=== PATIENT | female | born 1975 | race Two or more races ===

== ENCOUNTER 2020-11-30 11:47 | Inpatient (IN) | payer MEDICAID, OTHER ==
[~2020-11-30] VITALS: Ht 165.1 cm; Wt 65.9 kg
[2020-11-30 15:29] LABS: Basophils # (auto) 0.1 10 ^3/uL (0-0.2); Eosinophils # (auto) 0.1 10 ^3/uL (0-0.8); Eosinophils % (auto) 0.6 % (0.0-7.0); Hemoglobin 8.6 g/dL (12.2-16.2); Lymphocytes # (auto) 0.9 10 ^3/uL (0.4-5.4); Mean Corpuscular Hgb Conc. 31.8 g/dL (32.0-36.0); Monocytes # (auto) 1.1 10 ^3/uL (0-1.3); Red Blood Cells 3.85 10^6/uL (4.0-5.20)
[2020-11-30 15:31] LABS: Basophils % (auto) 0.7 % (0.0-2.0); Hematocrit 26.9 % (36.0-46.0); Lymphocytes % (auto) 8.1 % (10.0-50.0); Mean Corpuscular Hemoglobin 22.3 pg (28.0-32.0); Monocytes % (auto) 10.1 % (0.0-12.0); Neutrophils # (auto) 8.8 10 ^3/uL (1.6-8.6); Neutrophils % (auto) 80.5 % (37.0-80.0); Red Cell Distribution Width 19.3 % (11.8-14.3)
[2020-11-30 15:40] LABS: Albumin 3.4 g/dL (3.4-5.0); Calcium 9.2 mg/dL (8.5-10.1); Magnesium 2.3 mg/dL (1.6-2.6)
[2020-11-30 15:44] LABS: BUN/Creatinine Ratio 15.8; Bilirubin, Total 0.8 mg/dL (0.2-1.0)
[2020-11-30 15:59] LABS: Urine Bacteria NONE SEEN /hpf (None Seen); Urine Blood Negative /uL (Negative); Urine Mucus MODERATE (None Seen); Urine Specific Gravity 1.022 (1.001-1.035); Urine WBC 6 /hpf (0 - 5)
[2020-11-30 16:04] LABS: INR 0.98 (0.9-1.15); Partial Thromboplastin Time 24.5 sec (23.0-31.2)
[2020-11-30] MEDS ORDERED: IOHEXOL 350 MG/ML 100ML IJ ONE (16:44)
[2020-11-30] MEDS ORDERED: ENOXAPARIN SOD 60 MG/0.6 ML SYRINGE SC ONE (16:45)
[2020-11-30] MEDS ORDERED: MORPHINE SULFATE INJECTION 2 MG/ML SYRG IV PRN (19:00)
[2020-11-30] MEDS ORDERED: NITROGLYCERIN 0.4 MG SL TAB SL PRN (19:00)
[2020-11-30] MEDS ORDERED: ONDANSETRON HCL 4 MG/2 ML VIAL IV PRN (19:00)
[2020-11-30] MEDS: SODIUM CHLORIDE 0.9% 1,000 ML IV SCH (19:30)
[2020-11-30 20:20] VITALS: BP 134/79
[2020-11-30 22:00] VITALS: BP 134/79
[2020-11-30] MEDS: MORPHINE SULFATE INJECTION 2 MG/ML SYRG IV PRN (23:06)
[2020-11-30] MEDS ORDERED: IBUP600T28 PO (23:51)
[2020-12-01] MEDS: SODIUM CHLORIDE 0.9% 1,000 ML IV SCH ×2 (04:53→17:46)
[2020-12-01 05:00] VITALS: BP 110/71
[2020-12-01] MEDS ORDERED: ENOXAPARIN SOD 60 MG/0.6 ML SYRINGE SC ONE (05:00)
[2020-12-01 09:00] VITALS: BP 122/69
[2020-12-01] MEDS ORDERED: IOHEXOL 350 MG/ML 100ML IJ ONE (13:56)
[2020-12-01] MEDS ORDERED: LIDOCAINE 2%HCL (LOCAL ANESTH.) INJ 20ML MDV ONE (13:56)
[2020-12-01] MEDS ORDERED: MIDAZOLAM HCL 2MG/2ML 2ml VIAL (1mg/ml) ONE (13:57)
[2020-12-01] MEDS ORDERED: ANGIOMAX 250 MG VIAL IV ONE (13:57)
[2020-12-01] MEDS ORDERED: fentaNYL CITRATE 100 MCG/2 ML VL ONE (13:57)
[2020-12-01] MEDS ORDERED: diphenhdrAMINE HCL 50 MG/1 ML VL ONE (14:01)
[2020-12-01] MEDS ORDERED: methylPREDNISolone SOD SUCC 125 MG/2 ML VL ONE (14:01)
[2020-12-01] MEDS ORDERED: FAMOTIDINE (10MG/ML) 2ML VL IV ONE (14:02)
[2020-12-01] MEDS ORDERED: BUPIVACAINE HCL 50 ML ONE (14:11)
[2020-12-01] MEDS ORDERED: BUPIVACAINE 0.25% INJ 50ML VIAL ONE (14:11)
[2020-12-01] MEDS ORDERED: HYDROmorphone HCL 2 MG/ML VL ONE ×2 (14:49→15:16)
[2020-12-01 17:50] VITALS: BP 130/83
[2020-12-01 20:00] VITALS: BP 113/54
[2020-12-01] MEDS: RIVAROXABAN 15 MG TAB PO SCH (22:05)
[2020-12-02] VITALS (14 sets, daily range): BP systolic 98–139; BP diastolic 55–80
[2020-12-02] MEDS: SODIUM CHLORIDE 0.9% 1,000 ML IV SCH ×3 (01:05→21:00)
[2020-12-02] MEDS: MORPHINE SULFATE INJECTION 2 MG/ML SYRG IV PRN ×3 (01:05→18:31)
[2020-12-02 06:51] LABS: Basophils # (auto) 0.1 10 ^3/uL (0-0.2); Basophils % (auto) 0.9 % (0.0-2.0); Eosinophils # (auto) 0.3 10 ^3/uL (0-0.8); Lymphocytes # (auto) 1.2 10 ^3/uL (0.4-5.4); Mean Corpuscular Hemoglobin 22.7 pg (28.0-32.0); Monocytes # (auto) 0.9 10 ^3/uL (0-1.3); Neutrophils # (auto) 5.1 10 ^3/uL (1.6-8.6); White Blood Cell 7.6 10^3/uL (4.4-10.8)
[2020-12-02 06:53] LABS: Eosinophils % (auto) 4.2 % (0.0-7.0); Hematocrit 20.8 % (36.0-46.0); Lymphocytes % (auto) 16.2 % (10.0-50.0); Mean Corpuscular Hgb Conc. 31.6 g/dL (32.0-36.0); Monocytes % (auto) 11.5 % (0.0-12.0); Neutrophils % (auto) 67.2 % (37.0-80.0); Red Blood Cells 2.89 10^6/uL (4.0-5.20); Red Cell Distribution Width 19.5 % (11.8-14.3)
[2020-12-02 07:14] LABS: Hemoglobin 6.6 g/dL (12.2-16.2)
[2020-12-02] MEDS: RIVAROXABAN 15 MG TAB PO SCH ×2 (10:39→21:57)
[2020-12-02] MEDS: PANTOPRAZOLE 40 MG/10 ML VIAL INJ IV SCH (10:40)
[2020-12-03] VITALS (8 sets, daily range): BP systolic 100–130; BP diastolic 58–78
[2020-12-03] MEDS: MORPHINE SULFATE INJECTION 2 MG/ML SYRG IV PRN ×4 (00:41→19:48)
[2020-12-03 06:42] LABS: Basophils # (auto) 0.1 10 ^3/uL (0-0.2); Hemoglobin 8.9 g/dL (12.2-16.2); Neutrophils # (auto) 4.3 10 ^3/uL (1.6-8.6); White Blood Cell 6.8 10^3/uL (4.4-10.8)
[2020-12-03 06:43] LABS: Basophils % (auto) 1.1 % (0.0-2.0); Eosinophils # (auto) 0.3 10 ^3/uL (0-0.8); Eosinophils % (auto) 3.9 % (0.0-7.0); Hematocrit 26.5 % (36.0-46.0); Mean Corpuscular Hemoglobin 26.1 pg (28.0-32.0); Mean Corpuscular Hgb Conc. 33.6 g/dL (32.0-36.0); Mean Corpuscular Volume 77.8 fL (80.0-100.0); Monocytes # (auto) 1.1 10 ^3/uL (0-1.3); Monocytes % (auto) 16.5 % (0.0-12.0); Neutrophils % (auto) 63.5 % (37.0-80.0); Red Blood Cells 3.41 10^6/uL (4.0-5.20)
[2020-12-03 06:50] LABS: Red Cell Distribution Width 23.3 % (11.8-14.3)
[2020-12-03 07:05] LABS: Potassium 3.6 mmol/L (3.5-5.1)
[2020-12-03 07:13] LABS: Albumin 2.3 g/dL (3.4-5.0); BUN/Creatinine Ratio 8.3; Bilirubin, Total 0.6 mg/dL (0.2-1.0); Total Protein 6.1 g/dL (6.4-8.2)
[2020-12-03] MEDS: PANTOPRAZOLE 40 MG/10 ML VIAL INJ IV SCH (10:11)
[2020-12-03] MEDS: RIVAROXABAN 15 MG TAB PO SCH ×2 (10:12→21:55)
[2020-12-03] MEDS: NICOTINE 21MG/24 HR TOPICAL PATCH TD SCH (10:12)
[2020-12-03] MEDS: SODIUM CHLORIDE 0.9% 1,000 ML IV SCH ×3 (12:30→21:56)
[2020-12-04 05:19] VITALS: BP 128/86
[2020-12-04 05:42] LABS: Hematocrit 28.8 % (36.0-46.0); Hemoglobin 9.3 g/dL (12.2-16.2); Lymphocytes # (auto) 0.9 10 ^3/uL (0.4-5.4); Monocytes # (auto) 1.3 10 ^3/uL (0-1.3); Nucleated Red Blood Cells % 0.1 %
[2020-12-04 05:46] LABS: Basophils # (auto) 0 10 ^3/uL (0-0.2); Basophils % (auto) 0.7 % (0.0-2.0); Eosinophils # (auto) 0.2 10 ^3/uL (0-0.8); Eosinophils % (auto) 3.3 % (0.0-7.0); Lymphocytes % (auto) 12.5 % (10.0-50.0); Mean Corpuscular Hemoglobin 24.2 pg (28.0-32.0); Mean Corpuscular Hgb Conc. 32.4 g/dL (32.0-36.0); Mean Corpuscular Volume 74.8 fL (80.0-100.0); Monocytes % (auto) 17.3 % (0.0-12.0); Neutrophils # (auto) 4.8 10 ^3/uL (1.6-8.6); Neutrophils % (auto) 66.2 % (37.0-80.0); Red Blood Cells 3.86 10^6/uL (4.0-5.20); White Blood Cell 7.3 10^3/uL (4.4-10.8)
[2020-12-04 05:48] LABS: Red Cell Distribution Width 24.7 % (11.8-14.3)
[2020-12-04 06:00] LABS: Potassium 3.5 mmol/L (3.5-5.1)
[2020-12-04 06:08] LABS: Albumin 2.4 g/dL (3.4-5.0); BUN/Creatinine Ratio 7.4; Bilirubin, Total 0.6 mg/dL (0.2-1.0); Calcium 8.3 mg/dL (8.5-10.1); Total Protein 6.7 g/dL (6.4-8.2)
[2020-12-04 08:31] VITALS: BP 124/72
[2020-12-04] MEDS: NICOTINE 21MG/24 HR TOPICAL PATCH TD SCH (10:17)
[2020-12-04] MEDS: RIVAROXABAN 15 MG TAB PO SCH (10:17)
[2020-12-04] MEDS: PANTOPRAZOLE 40 MG/10 ML VIAL INJ IV SCH (10:17)
[2020-12-04 12:57] VITALS: BP 114/74
== END 2020-12-04 14:00 | disposition home or self-care (01) | DRG 182 ==
LOC: ER 11:47 → TELE 18:54 → TELE-CENTR 20:20
PROVIDERS: ADMIT Nurse Practitioner Acute Care; ATTEND Family Medicine
PROC: 067N3ZZ Dilation of Left Femoral Vein, Percutaneous Approach (ICD-10-PCS; 2020-12-01)
PROC: 06CN3ZZ Extirpation of Matter from Left Femoral Vein, Percutaneous Approach (ICD-10-PCS; 2020-12-01)
PROC: B51C1ZZ Fluoroscopy of Left Lower Extremity Veins using Low Osmolar Contrast (ICD-10-PCS; 2020-12-01)
PROC: 30233N1 Transfusion of Nonautologous Red Blood Cells into Peripheral Vein, Percutaneous Approach (ICD-10-PCS; principal; 2020-12-02)
DX: I82.412 Acute embolism and thrombosis of left femoral vein (principal); I82.432 Acute embolism and thrombosis of left popliteal vein; D68.9 Coagulation defect, unspecified; J44.9 Chronic obstructive pulmonary disease, unspecified; D64.9 Anemia, unspecified; M06.9 Rheumatoid arthritis, unspecified; Z20.822 Contact with and (suspected) exposure to COVID-19; I82.442 Acute embolism and thrombosis of left tibial vein; F17.210 Nicotine dependence, cigarettes, uncomplicated; Z79.01 Long term (current) use of anticoagulants; Z82.49 Family history of ischemic heart disease and other diseases of the circulatory system; Z88.8 Allergy status to other drugs, medicaments and biological substances; Z71.6 Tobacco abuse counseling
CPT/HCPCS: 36415; 37187; 37225; 71045; 71275; 75820; 80053; 81001; 81025; 82270; 83735; 85025; 85379; 85610; 85730; 86850; 86900; 86901; 86920; 87081; 87426; 93005; 93971; 96361; 96372; 96374; 99152; 99153; C1769; C1894; C9113; G0378; J2250; J2405; J3490

== ENCOUNTER 2020-12-13 12:16 | Emergency (ER) | payer MEDICAID ==
[~2020-12-13] VITALS: Ht 165.1 cm; Wt 60.3 kg
[~2020-12-13 12:16] MED LIST: IBUP600T28 PO
[2020-12-13 15:29] VITALS: BP 113/81
== END 2020-12-13 16:50 | disposition home or self-care (01) ==
LOC: ER 12:16
DX: T81.49XA Infection following a procedure, other surgical site, initial encounter (principal); F17.210 Nicotine dependence, cigarettes, uncomplicated; Z79.1 Long term (current) use of non-steroidal anti-inflammatories (NSAID); Z88.8 Allergy status to other drugs, medicaments and biological substances

== ENCOUNTER 2021-08-01 16:55 | Inpatient (IN) | payer MEDICAID ==
[~2021-08-01] VITALS: Ht 165.1 cm; Wt 63.0 kg
[2021-08-01] MEDS ORDERED: ENOXAPARIN SOD 100 MG/1 ML SYRINGE SC ONE (18:00)
[2021-08-01] MEDS ORDERED: IOHEXOL 350 MG/ML 100ML IJ ONE (20:34)
[2021-08-01 21:04] LABS: Basophils # (auto) 0 10 ^3/uL (0-0.2); Basophils % (auto) 0.6 % (0.0-2.0); Eosinophils # (auto) 0.3 10 ^3/uL (0-0.8); Eosinophils % (auto) 4.3 % (0.0-7.0); Hematocrit 31.1 % (36.0-46.0); Hemoglobin 10.5 g/dL (12.2-16.2); Lymphocytes # (auto) 2.1 10 ^3/uL (0.4-5.4); Lymphocytes % (auto) 35.2 % (10.0-50.0); Mean Corpuscular Hemoglobin 32.4 pg (28.0-32.0); Mean Corpuscular Hgb Conc. 33.8 g/dL (32.0-36.0); Monocytes # (auto) 0.6 10 ^3/uL (0-1.3); Monocytes % (auto) 9.7 % (0.0-12.0); Neutrophils # (auto) 2.9 10 ^3/uL (1.6-8.6); Neutrophils % (auto) 50.2 % (37.0-80.0); Nucleated Red Blood Cells % 0.1 %; Red Blood Cells 3.24 10^6/uL (4.0-5.20); Red Cell Distribution Width 15.6 % (11.8-14.3); White Blood Cell 5.9 10^3/uL (4.4-10.8)
[2021-08-01 21:19] LABS: Albumin 3.5 g/dL (3.4-5.0); Calcium 8.6 mg/dL (8.5-10.1)
[2021-08-01 21:23] LABS: Bilirubin, Total 0.2 mg/dL (0.2-1.0); Total Protein 7.5 g/dL (6.4-8.2)
[2021-08-01 22:28] LABS: INR 1.21 (0.9-1.15); Partial Thromboplastin Time 30.8 sec (23.6-33.0)
[2021-08-01] MEDS: HEPARIN DRIP/D5W 100UNITS/ML 250 ML IV SCH (23:12)
[2021-08-01 23:49] LABS: Urine Bacteria NONE SEEN /hpf (None Seen); Urine Blood Negative /uL (Negative); Urine Specific Gravity 1.044 (1.001-1.035); Urine WBC <1 /hpf (0 - 5)
[2021-08-02] MEDS ORDERED: NITROGLYCERIN 0.4 MG SL TAB SL PRN (06:30)
[2021-08-02] MEDS ORDERED: SODIUM CHLORIDE 0.9% 1,000 ML IV ONE (06:30)
[2021-08-02] MEDS ORDERED: MORPHINE SULFATE INJECTION 2 MG/ML SYRG IV PRN ×2 (06:30→06:45)
[2021-08-02] MEDS ORDERED: ONDANSETRON HCL 4 MG/2 ML VIAL IV PRN (06:30)
[2021-08-02] MEDS ORDERED: MORPHINE SULFATE 4 MG/ML SYR/VIAL IV PRN (06:30)
[2021-08-02 06:36] LABS: INR 1.16 (0.9-1.15); Partial Thromboplastin Time 46.1 sec (23.6-33.0)
[2021-08-02] MEDS: HEPARIN DRIP/D5W 100UNITS/ML 250 ML IV SCH (06:55)
[2021-08-02] MEDS ORDERED: D5W/LACTATED RINGERS 1,000 ML IV SCH (08:30)
[2021-08-02 14:40] LABS: Potassium 4.4 mmol/L (3.5-5.1)
[2021-08-02 14:50] LABS: BUN/Creatinine Ratio 8.1; Calcium 8.5 mg/dL (8.5-10.1)
[2021-08-02] MEDS ORDERED: HYDROcodone-ACET 5/325MG TAB PO PRN (17:30)
[2021-08-02 18:23] LABS: INR 1.18 (0.9-1.15)
[2021-08-02 18:30] LABS: Partial Thromboplastin Time 121.3 sec (23.6-33.0)
[2021-08-02] MEDS ORDERED: RIV20T PO (20:04)
[2021-08-02] MEDS ORDERED: FERR325T20 PO (20:04)
[2021-08-02] MEDS: APIXABAN 5 MG TAB PO SCH (20:57)
[2021-08-02] MEDS: ACETAMINOPHEN 325 MG TAB PO PRN (21:09)
[2021-08-02 22:00] VITALS: BP 108/56
[2021-08-03 05:00] VITALS: BP_SYST 106; BP_SYST 137; BP_DIAS 60; BP_DIAS 92
[2021-08-03 08:00] VITALS: BP 123/58
[2021-08-03 08:38] VITALS: BP 123/58
[2021-08-03] MEDS: APIXABAN 5 MG TAB PO SCH (09:12)
[2021-08-03 12:00] LABS: Basophils # (auto) 0.1 10 ^3/uL (0-0.2); Basophils % (auto) 1.3 % (0.0-2.0); Eosinophils # (auto) 0.1 10 ^3/uL (0-0.8); Eosinophils % (auto) 2.9 % (0.0-7.0); Hematocrit 29.7 % (36.0-46.0); Hemoglobin 9.9 g/dL (12.2-16.2); Lymphocytes % (auto) 20.6 % (10.0-50.0); Mean Corpuscular Hemoglobin 31.4 pg (28.0-32.0); Mean Corpuscular Hgb Conc. 33.3 g/dL (32.0-36.0); Mean Corpuscular Volume 94.3 fL (80.0-100.0); Monocytes # (auto) 0.6 10 ^3/uL (0-1.3); Monocytes % (auto) 12.2 % (0.0-12.0); Nucleated Red Blood Cells % 0.2 %; Red Blood Cells 3.14 10^6/uL (4.0-5.20); Red Cell Distribution Width 16.2 % (11.8-14.3); White Blood Cell 4.8 10^3/uL (4.4-10.8)
[2021-08-03 13:00] VITALS: BP 105/53
[2021-08-03] MEDS: ACETAMINOPHEN 325 MG TAB PO PRN (13:36)
[2021-08-03] MEDS ORDERED: APIX5TAB PO (15:42)
[2021-08-03 17:10] VITALS: BP 101/64
== END 2021-08-03 18:20 | disposition home or self-care (01) | DRG 197 ==
LOC: ER 16:55 → TELE 08-02 06:22 → TELE-CENTR 08-02 18:25
PROVIDERS: ADMIT Hospitalist; ATTEND Hospitalist
DX: I82.412 Acute embolism and thrombosis of left femoral vein (principal); D63.8 Anemia in other chronic diseases classified elsewhere; I82.502 Chronic embolism and thrombosis of unspecified deep veins of left lower extremity; Z20.822 Contact with and (suspected) exposure to COVID-19; F17.210 Nicotine dependence, cigarettes, uncomplicated; M19.90 Unspecified osteoarthritis, unspecified site; Z82.49 Family history of ischemic heart disease and other diseases of the circulatory system; Z88.8 Allergy status to other drugs, medicaments and biological substances; Z79.01 Long term (current) use of anticoagulants
CPT/HCPCS: 36415; 71275; 80048; 80053; 81001; 85025; 85610; 85730; 87426; 93971; 96361; 96365; 96366; 96375; G0378; J2405

== ENCOUNTER → 2021-09-04 | Outpatient (CLI) | payer MEDICAID ==
[~2021-09-04] MED LIST changes: +APIX5TAB PO; +FERR325T20 PO; -IBUP600T28 PO; +RIV20T PO
== END | disposition home or self-care (01) ==
LOC: Rad HDHVI 15:02
PROVIDERS: ATTEND Internal Medicine Cardiovascular Disease
DX: I10 Essential (primary) hypertension (principal)
CPT/HCPCS: 93306

== ENCOUNTER → 2021-09-06 | Outpatient (CLI) | payer MEDICAID | END | disposition home or self-care (01) | LOC: Rad HDHVI 13:08 | PROVIDERS: ATTEND Internal Medicine Cardiovascular Disease | DX: I82.412 Acute embolism and thrombosis of left femoral vein (principal); R60.0 Localized edema | CPT/HCPCS: 93971 ==